=== PATIENT | female | born 1975 | race Two or more races ===

== ENCOUNTER 2024-08-14 03:36 | Emergency (ER) | payer OTHER ==
[~2024-08-14] VITALS: Ht 152.4 cm; Wt 52.2 kg
== END 2024-08-14 05:45 | disposition home or self-care (01) ==
LOC: ER 03:36
DX: R53.81 Other malaise (principal); R45.0 Nervousness

== ENCOUNTER 2025-01-05 08:25 | Emergency (ER) | payer OTHER ==
[~2025-01-05] VITALS: Ht 165.1 cm; Wt 52.2 kg
[2025-01-05 09:43] LABS: HEMATOCRIT 44.3 % (36.0-45.00); HEMOGLOBIN 15.1 g/dL (12.0-15.00); MEAN CELL VOLUME 88.4 fL (80.00-100.00); PLATELET COUNT 172 K/uL (150-450); RED BLOOD COUNT 5.02 M/uL (4.00-6.00); RED CELL DISTRIBUTION WIDTH 12.7 % (11.5-14.5)
[2025-01-05] MEDS ORDERED: ZITHROMAX500 MG PO (11:26)
[2025-01-05] MEDS ORDERED: FLONASE ALLERG9.9 ML NASAL (11:26)
[2025-01-05] MEDS ORDERED: XYZAL5 MG PO (11:26)
[2025-01-05 13:03] VITALS: BP 146/84; O2SAT 100
== END 2025-01-05 13:04 | disposition home or self-care (01) ==
LOC: ER 08:27
PROVIDERS: Emergency Medicine
DX: J31.0 Chronic rhinitis (principal); F41.8 Other specified anxiety disorders; J32.0 Chronic maxillary sinusitis; Z20.822 Contact with and (suspected) exposure to COVID-19

== ENCOUNTER → 2025-07-16 | Emergency (ER) | payer OTHER ==
[~2025-07-16] VITALS: Ht 165.1 cm; Wt 52.6 kg
[~2025-07-16] MED LIST: FLONASE ALLERG9.9 ML NASAL; SYNTHROID50 MCG PO; XYZAL5 MG PO; ZITHROMAX500 MG PO
== END | disposition home or self-care (01) ==
LOC: ER 09:13
DX: R00.2 Palpitations (principal); E03.8 Other specified hypothyroidism